=== PATIENT | female | born 1955 | race Caucasian/White ===

== ENCOUNTER 2018-01-15 10:04 | Outpatient (CLI) | payer MEDICARE, OTHER ==
--- NOTE | 2018-01-15 12:57 | BD ---
DEXA BONE DENSITY SCAN: 01/15/2018 HISTORY: Osteoporosis. COMPARISON: None. FINDINGS: LUMBAR SPINE BMD (g/cm2) T-SCORE L1 0.842 -1.3 L2 0.840 -1.7 L3 0.966 -1.1 L4 0.755 -2.8 TOTAL 0.849 -1.8 FEMORAL NECK: 0.555 -2.6 TOTAL PROXIMAL FEMUR: 0.729 -1.7 The FRAX-WHO Fracture Risk Assessment Tool is not reported, as some T-scores are at or below -2.5. IMPRESSION: 1. Femoral neck osteoporosis, correlating with a high risk for fracture. 2. Diffuse lumbar spine osteopenia with focal osteoporosis at L4. POS: [facility]
== END 2018-01-15 10:05 | disposition home or self-care (01) ==
LOC: BICMAMMO 10:04
PROVIDERS: ATTEND Student in an Organized Health Care Education/Training Program
DX: Z12.31 Encounter for screening mammogram for malignant neoplasm of breast (principal); Z13.820 Encounter for screening for osteoporosis; M81.0 Age-related osteoporosis without current pathological fracture
CPT/HCPCS: 77063; 77067; 77080

== ENCOUNTER 2018-03-08 12:51 | Outpatient (CLI) | payer MEDICARE, OTHER ==
--- NOTE | 2018-03-08 14:20 | RAD ---
LUMBAR SPINE 2 VIEWS: HISTORY: Low back pain. Fractured lumbar vertebrae. FINDINGS: Compression fracture involving the L3 vertebra is noted. There is superior end plate compression and mild buckling of the anterior cortex. Loss of anterior height is estimated in the 10-20% range. Posterior height is maintained and posterior alignment is preserved. The other lumbar vertebrae main tain normal height and alignment. The disk spaces are maintained. There are mild degenerative lyle es noted. Facet hypertrophy. IMPRESSION: Compression fracture involving the L3 vertebra as described. POS: [facility]
== END 2018-03-08 12:52 | disposition home or self-care (01) ==
LOC: TBSIIMAG 12:51
PROVIDERS: ATTEND Neurological Surgery
DX: S32.039A Unspecified fracture of third lumbar vertebra, initial encounter for closed fracture (principal)
CPT/HCPCS: 72100

== ENCOUNTER 2018-07-03 12:56 | Outpatient (CLI) | payer MEDICARE, OTHER ==
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
== END 2018-07-03 12:57 | disposition home or self-care (01) ==
LOC: TBSIIMAG 12:56
PROVIDERS: ATTEND Neurological Surgery
DX: S32.039D Unspecified fracture of third lumbar vertebra, subsequent encounter for fracture with routine healing (principal); S22.009D Unspecified fracture of unspecified thoracic vertebra, subsequent encounter for fracture with routine healing
CPT/HCPCS: 72100